=== PATIENT | male | born 1945 | race Caucasian/White ===

== ENCOUNTER 2022-09-04 10:55 | Emergency (ER) | payer MEDICARE, OTHER ==
[2022-09-04] MEDS ORDERED: Dexamethasone 10 MG/ML VIAL ONE (11:44)
== END 2022-09-04 12:42 | disposition home or self-care (01) ==
LOC: CSHERS 10:55
DX: J02.8 Acute pharyngitis due to other specified organisms (principal)
CPT/HCPCS: 87081; 87430; 87804; 96372; 99283; J1100